=== PATIENT | male | born 1990 | race Caucasian/White ===

== ENCOUNTER 2021-02-09 04:04 | Emergency (ER) | payer BC ==
[2021-02-09] MEDS ORDERED: Acetaminophen/HYDROcodone 325-5 MG Tab PO ONE (04:05)
[2021-02-09] MEDS ORDERED: Hydrocortisone/Neomycin/Polymyxin B Ophth Susp 7.5 ML Bottle EYEBOTH ONE (04:05)
--- NOTE | 2021-02-09 06:32 | ER ---
DATE SEEN: 02/09/2021 CHIEF COMPLAINT: Foreign body, right eye. HISTORY OF PRESENT ILLNESS: This is a 30-year-old male complaining of sharp foreign body sensation in the right eye. He had been working in [employer] earlier today around 10 o'clock last night and since has felt the pain when he closes his eye or when he moves it. He also has tearing and photophobia. REVIEW OF SYSTEMS: No headache. No nausea or vomiting. ALLERGIES: Penicillin. PHYSICAL EXAMINATION: GENERAL: He is in a dark room. He is uncomfortable. VITAL SIGNS: Normal. EYES: The right eye revealed normal pupils. The anterior chamber is of normal depth and contour. No foreign bodies were noted on microscopic exam. I did use tetracaine for anesthesia and noted that there was a 3 to 4 mm size corneal abrasion. IMPRESSION: Corneal abrasion. PLAN: Hydrocodone tablet every 6 hours as needed and Cortisporin drops three times a day to the right eye for 3 days. /[id number] MAGUE/ADELA
== END 2021-02-09 04:39 | disposition home or self-care (01) ==
LOC: FB.ED 04:04
DX: S05.01XA Injury of conjunctiva and corneal abrasion without foreign body, right eye, initial encounter (principal); W22.8XXA Striking against or struck by other objects, initial encounter
CPT/HCPCS: 99283; A9270